=== PATIENT | male | born 1945 | race Caucasian/White ===

== ENCOUNTER 2019-11-02 14:09 | Outpatient (CLI) | payer MEDICARE, BC, SELFPAY ==
--- NOTE | ~2019-11-02 | XR_ITS ---
XR abdomen/kub 1V 11/02/2019 14:39 Indication: History of kidney stones Procedure: KUB Comparison: No prior studies for comparison. Findings: There are bilateral renal stones, largest in the lower pole of the left kidney measuring 10 mm maximum dimension. There is a vague round radiodensity in the pelvis overlying the lower aspect o f the sacrum, possibly bowel content or less likely bladder stone. Consider correlation with CT for f urther characterization. Moderate lumbar spondylosis. Impression: 1: Bilateral nephrolithiasis. 2: Vague round radiodensity in the pelvis which may represent bowel content or less likely bladder st one. Consider correlation with CT. Reviewed, dictated and finalized at location A. Impression: 1: Bilateral nephrolithiasis. 2: Vague round radiodensity in the pelvis which may represent bowel content or less likely bladder stone. Consider correlation with CT.
== END 2019-11-02 14:10 | disposition home or self-care (01) ==
LOC: ANHIMG 14:20
PROVIDERS: PCP Internal Medicine; Visit Provider Urology
DX: Z87.442 Personal history of urinary calculi (principal); N20.0 Calculus of kidney
CPT/HCPCS: 74018

== ENCOUNTER 2019-11-09 10:23 | Outpatient (CLI) | payer MEDICARE, SELFPAY ==
[2019-11-09 10:52] LABS: INR 1.1; Partial Thromboplastin Time 28.6 SECONDS (22.3-36.8); Prothrombin Time 13.5 Seconds (11.1-14.7)
== END 2019-11-09 10:24 | disposition home or self-care (01) ==
LOC: ANHSURGERY 10:27
PROVIDERS: PCP Internal Medicine; Visit Provider Urology
DX: N20.0 Calculus of kidney (principal); Z01.812 Encounter for preprocedural laboratory examination
CPT/HCPCS: 36415; 85610; 85730; 87086

== ENCOUNTER 2019-11-11 00:21 | Outpatient (CLI) | payer MEDICARE, SELFPAY ==
[2019-11-11 18:11] LABS: SARS-CoV-2 RNA PCR Negative
== END 2019-11-11 00:22 | disposition home or self-care (01) ==
LOC: ANHCOVIDDT 00:22
PROVIDERS: PCP Internal Medicine; Visit Provider Urology
DX: Z01.812 Encounter for preprocedural laboratory examination (principal); Z20.828 Contact with and (suspected) exposure to other viral communicable diseases
CPT/HCPCS: 87635; C9803; U0003

== ENCOUNTER 2019-11-13 03:11 | Day surgery (SDC) | payer MEDICARE, SELFPAY ==
[2019-11-05 15:35] VITALS: BMI 25.8
[2019-11-13] VITALS (10 sets, daily range): BP systolic 102–131; BP diastolic 55–96; PULSE 58–67; RESP 8–18; TEMP 36.4–36.5; O2SAT 96–100
--- NOTE | ~2019-11-13 | XR_ITS ---
EXAMINATION: XR abdomen/kub 1V DATE: 11/13/2019 06:25 INDICATION: Left kidney stone. TECHNIQUE: A supine view of the abdomen was obtained. COMPARISON: Abdomen radiograph 11/02/2019 FINDINGS: There is an 8 mm stone in left kidney. There are no dilated loops of bowel. IMPRESSION: 1. Left kidney stone. Reviewed, dictated and finalized at location A. IMPRESSION: 1. Left kidney stone.
--- NOTE | 2019-11-13 06:38 | WPDANESEPPF ---
Anes - Initial Pre Proc Eval Procedure: Operation Date: 11/13/19 07:30 Proposed Procedures p Left Renal Extracorporeal Shock Wave Lithotripsy - Avtar Marcus MD Date/Time: 11/13/19 06:38 Surgeon: Avtar Marcus MD Pre Op Diagnosis: Left Renal Stone Patient Data Age: 74 Gender: M Height: 5 ft 9 in Weight: 79.38 kg Allergies Allergy/AdvReac Type Severity Reaction Status Date / Time No Known Allergies Allergy Unverified 11/05/19 15:25 Home Medications Medication Instructions Recorded Confirmed Type levothyroxine 25 mcg PO DAILY 11/05/19 11/05/19 History multivitamin [Daily Multiple] 1 tablet PO DAILY 11/05/19 11/05/19 History omeprazole 20 mg PO DAILY 11/05/19 11/05/19 History Patient hx anesthesia problems: none Family hx anesthesia problems: none [facility] Past Medical History Medical History (Updated 11/13/19 @ 06:39 by Gagan Keen MD) Ureteral stone Social History Social History (Updated 11/13/19 @ 06:39 by Gagan Keen MD) Smoking status: Never smoker Gender identity (if verbalized by the patient): Male Anes - Eval Final PreProcedure Day of Procedure 11/13/19 06:38 Patient weight: normal Heart: regular rate and rhythm Lungs: clear to auscultation Airway: Mallampati scale class II Neurological: alert and oriented Last oral intake: >/= 8 hours ASA classification: II Emergent: no Anesthetic plan: proceed Anesthesia type and monitoring: general LMA and standard monitoring Informed Consent: The patient's anesthetic plan and its attendant risks and benefits were discussed with the patient/family/POA. Questions were solicited and answers provided to the satisfaction of the patient/family/POA.
--- NOTE | 2019-11-13 07:04 | WPDHPUPDATE1 ---
History and Physical Update Update Date/Time: 11/13/19 07:04 History and Physical has been reviewed, including an updated exam of the patient. There are NO changes in the patient's condition. Risks, benefits, and alternatives have been discussed and questions answered. Patient agrees to proceed with procedure.
[2019-11-13] MEDS: LACTATED RINGERS 1,000 ML 30 ML IV CONT ×2 (07:18→09:00)
[2019-11-13] MEDS: ceFAZolin 2 GM/D5W 50 ML 2 GM/50 ML BAG IVPB (07:23)
--- NOTE | 2019-11-13 07:49 | PM.PROC ---
Procedure Note - Detailed Date of procedure: 11/13/19 Pre-op diagnosis: Left Renal Stone Post-op diagnosis: same Procedure performed: Left renal ESWL Description of procedure: The patient was brought to the operative suite where he was placed in the supine position on the Dornier lithotripsy table. The focal point of the lithotripter was placed at a 9-10mm left lower calyceal calculus. A total of 2500 shocks were delivered at a power setting of 4. There appeared to be good fragmentation of the stone. The patient tolerated the procedure well and was taken to the recovery room in good condition. Anesthesia: GLMA Surgeon: Avtar Marcus MD Exhaust Emissions Automotive Technician: None Drains: No Packing: No Pathology: none sent Complications: No immediate complications Condition: stable Disposition: PACU
[2019-11-13] MEDS: ONDANSETRON INJ 4 MG/2 ML VIAL IV PUSH (09:13)
--- NOTE | 2019-11-13 09:14 | SUR.PHASEI ---
C/O MILD NAUSEA. ZOFRAN GIVEN
--- NOTE | 2019-11-13 09:26 | SUR.PHASEI ---
PT STATES NAUSEA IMPROVED. RESTING COMFORTABLY
== END 2019-11-13 10:45 | disposition home or self-care (01) ==
PROVIDERS: PCP Internal Medicine; Visit Provider Urology
PROC: (CPT 50590; principal; 2019-11-13 07:30)
DX: N20.0 Calculus of kidney (principal)
CPT/HCPCS: 50590; 74018; A9270; J0690; J1100; J2250; J2405; J2704; J3010; J7120

== ENCOUNTER 2021-07-27 09:50 | Outpatient (CLI) | payer MEDICARE, SELFPAY ==
--- NOTE | ~2021-07-27 | XR_ITS ---
XR chest 2V DATE: 07/27/2021 11:21 INDICATION: Malignant neoplasm of prostate. Preoperative examination. TECHNIQUE: PA and lateral views COMPARISON: None FINDINGS: Normal heart size. No hilar or mediastinal enlargement. No pulmonary infiltrate or consolid ation, pleural effusion or pulmonary vascular congestion or pneumothorax. Calcified pulmonary granulo ma, right upper lobe. Prominent degenerative disc disease in the lower cervical spine. Mild degenerative spurring of the th oracic spine. IMPRESSION: No active cardiopulmonary disease Reviewed, dictated and finalized at location A. MAKER
--- NOTE | 2021-07-27 10:48 | ECG_ITS ---
Measurements Intervals [place] Rate: 55 P: -29 NV: 160 QRS: 41 QRSD: 90 T: 15 QT: 397 QTc: 383 Interpretive Statements SINUS BRADYCARDIA OTHERWISE NORMAL ECG NO PREVIOUS ECG AVAILABLE FOR COMPARISON Electronically Signed On 07-27-2021 15:23:08 NURSE RECEPTIONIST by Gregory Khan M.D.
[2021-07-27 11:16] LABS: Basophils Absolute Auto 0.1 K/mm3 (0.0-0.1); Basophils Percent Auto 1.2 % (0.2-1.2); Eosinophils Absolute Auto 0.3 K/mm3 (0-0.3); Eosinophils Percent Auto 7.1 % (0-4.4); Hematocrit 41.2 % (42.0-52.0); Hemoglobin 13.5 g/dL (14.0-18.0); Immature Granulocyte Absolute 0.01 K/mm3 (0.00-0.031); Immature Granulocyte Percent A 0.2 % (0-0.5); Immature Platelet Fraction Pct 4.7 % (0.9-11.2); Lymphocytes Absolute Auto 1.38 K/mm3 (0.9-3.2); Lymphocytes Percent Auto 32.5 % (18.3-44.2); Mean Corpuscular HGB Conc 32.8 g/dl (32-36); Mean Corpuscular Hemoglobin 30.1 pg (26-34); Mean Platelet Volume 10.2 fl (7.4-10.4); Monocytes Absolute Auto 0.4 K/mm3 (0.1-0.6); Monocytes Percent Auto 8.7 % (2.6-8.5); Neutrophils Absolute Auto 2.1 K/mm3 (1.3-6.7); Neutrophils Percent Auto 50.3 % (45.5-73.1); Platelet Count Result 149 k/mm3 (150-375); Red Blood Count 4.48 M/mm3 (4.6-6.20); Red Cell Distribution Width 12.8 % (11.5-14.5); White Blood Count 4.2 K/mm3 (4.5-10.0)
[2021-07-27 11:20] LABS: Add Urine Microscopic? YES; Appearance Urine Clear (Clear); Bilirubin Urine Negative (Negative); Blood Urine Negative (Negative); Color Urine Yellow (Yellow); Glucose Urine UA Negative (Negative); Ketones Urine Negative (Negative); Leukocyte Esterase Ur Negative LEU/UL (Negative); Mucus Urine Rare /lpf; Nitrate Urine Negative (Negative); Protein Urine Negative (Negative); RBC Urine 0-2 /hpf (0-2); Specific Grav Ur 1.018 (1.001-1.035); Squamous Epithelial Cell Urine Rare /hpf (Few); Urobilinogen Urine Negative mg/dL (<2.0); WBC Urine 0-3 /hpf
[2021-07-27 11:25] LABS: INR 1.1; Prothrombin Time 13.5 Seconds (11.1-14.7)
[2021-07-27 11:26] LABS: Partial Thromboplastin Time 33.4 SECONDS (22.3-36.8)
[2021-07-27 11:39] LABS: Alanine Aminotransferase 25 U/L (4-50); Albumin Level 4.1 g/dL (3.5-5.1); Alkaline Phosphatase 76 U/L (38-126); Anion Gap 6 mmol/L (8-16); Aspartate Amino Transferase 29 U/L (17-59); Bilirubin,Total 0.5 mg/dL (0.2-1.3); Blood Urea Nitrogen 21 mg/dL (9-20); Calcium 8.6 mg/dL (8.4-10.2); Carbon Dioxide 30 mmol/L (22-30); Chloride 105 mmol/L (98-107); Estimated Glomerular Filt Rate > 60; Glucose 99 mg/dL (65-110); Potassium 4.4 mmol/L (3.4-5.0); Sodium 141 mmol/L (137-145)
== END 2021-07-27 09:51 | disposition home or self-care (01) ==
LOC: ANHSURGERY 09:55
PROVIDERS: PCP Internal Medicine; Visit Provider Urology
DX: Z01.818 Encounter for other preprocedural examination (principal); C61 Malignant neoplasm of prostate; R00.1 Bradycardia, unspecified; M47.814 Spondylosis without myelopathy or radiculopathy, thoracic region; Z51.81 Encounter for therapeutic drug level monitoring; Z79.899 Other long term (current) drug therapy
CPT/HCPCS: 36415; 71046; 80053; 81001; 85025; 85055; 85610; 85730; 86850; 86900; 86901; 93005

== ENCOUNTER 2021-08-03 00:39 | Day surgery (SDC) | payer MEDICARE, SELFPAY ==
--- NOTE | 2021-07-26 07:34 | P.HP_ITS ---
H&P: HPI History of Present Illness Date/Time: 07/26/21 07:34 Pleasant 76-year-old male who is known to have an elevated PSA since January 2015. At that time he underwent his 1st prostate biopsy around the time his PSA was 4.2. That biopsy was negative. , more recently, however, his PSA is progressed to 25.5 and a prostate MRI shows an area of concern in the right anterior / posterior transition zone extending from the base to the midportion of his prostate and perhaps encroaching the prostate capsule anteriorly. MRI targeted biopsy revealed adenocarcinoma Gabino 6, 4+3=7, 8 in 4 of [address] scan of the abdomen pelvis w/ contrast, bone scan and chest x-ray showed no evidence of metastatic disease. After thorough discussion of the therapeutic options he has elected to proceed with robotic assisted radical prostatectomy with bilateral pelvic lymphadenectomy. He is aware of the risk including, but not limited to, adverse cardiopulmonary events, rectal injury, urinary incontinence and erectile dysfunction. Chief Complaint: Prostate cancer Review of Systems Cardiovascular: Cardiovascular: Denies chest pain, Denies lightheadedness, Denies palpitations and Denies dyspnea Respiratory: Respiratory: Denies dyspnea Gastrointestinal: Gastrointestinal: Denies diarrhea, Denies nausea and Denies vomiting Genitourinary: Genitourinary: Denies hematuria and Denies dysuria Endocrine: Endocrine: Denies palpitations PMFSH Past Medical History Medical History Ureteral stone Social History Social History Smoking status: Never smoker Alcohol intake: never Substance use: never Gender identity (if verbalized by the patient): Male Meds Home Medications and Allergies Home Medications Medication Instructions Recorded Confirmed Type levothyroxine 25 mcg PO DAILY 11/05/19 07/04/21 History multivitamin [Daily Multiple] 1 tablet PO DAILY 11/05/19 07/04/21 History omeprazole 20 mg PO DAILY 11/05/19 07/04/21 History diphenoxylate-atropine 2.5 1 tablet PO QID PRN 07/04/21 07/04/21 History mg-0.025 mg tablet tadalafil 5 mg tablet 5 mg PO DAILY 07/04/21 07/04/21 History tamsulosin 0.4 mg capsule 0.4 mg PO DAILY 07/04/21 07/04/21 History Allergies Allergy/AdvReac Type Severity Reaction Status Date / Time No Known Allergies Allergy Unverified 07/04/21 08:16 Exam Const: General: no acute distress Resp: Effort & Inspection: normal respiratory effort GI: Inspection: non-distended GI Palp: No abdominal tenderness and No Guarding due to palpation present (GI) Auscultation: normal bowel sounds Assessment and Plan Assessment and plan (1) Carcinoma of prostate: Code(s): C61 - Malignant neoplasm of prostate Status: Acute Assessment and Plan: * Robotic assisted radical prostatectomy with bilateral pelvic lymphadenectomy
--- NOTE | 2021-07-27 10:25 | PC.NURSE ---
Report to the Outpatient Waiting Room, entrance under the green pavilion located off [facility], at time _0600 on date __08/03/21 . OR Time: . - You and your visitor will be asked a series of questions to screen for COVID 19 for your protection. - A mask is required within the hospital. Preoperative COVID Testing Requirements: No COVID Test needed if: (proof is required; if not received patient will have Rapid Test prior to entry) - Patient has received COVID Vaccine at least 14 days prior to procedure date or - Patient has positive COVID test result within last 90 days of surgery date. COVID Test needed if above criteria is not met If not COVID vaccinated a COVID test must be conducted within 72 hours of surgery and patient is asked to isolate self from time of testing until procedure. You will go to the [employer] [facility] for your COVID testing. The [employer] [facility] is located at the corner of [address] [facility]. You will only be called if COVID results are positive and your surgeon may reschedule your elective surgery date. Patients may have clear liquids (water, carbonated beverages, clear teas, apple juice) until 3 hours prior to surgery with a maximum of 20 ounces. - No food from midnight until time of surgery Take the following medications with a SIP of water the morning of surgery: __LEVOTHYROXINE Medications to discontinue per physician __ALL VITAMINS AND SUPPLEMENTS 3 DAYS PRE OP,ADVIL PER DR AGUIAR Date to take last dose__07/30/21 Please no make-up, nail chinese, hairspray, perfume, deodorant, or body powder the day of surgery. No jewelry (including any body piercings) or valuables the day of surgery, leave them at home. Please take a shower or bath the night before, or the morning of, surgery with an antibacterial soap. Wear comfortable, loose fitting clothing. Children are encouraged to wear pajamas. - Jewelry must be removed prior to entering the operating room. Rings and piercings that are not removed may be cut off. - The hospital will not accept responsibility for valuables. - Please leave all valuables, including medications, at home the day of surgery. If you are going home after surgery, a licensed over the road driver must drive you home. - NO public transportation without another adult. - We recommend that an adult stay with you for 24 hours following discharge. - We also recommend that you do not drive, make important decision, drink alcoholic beverages, or take any drugs that were not prescribed by your health care provider for at least 24 hours after your discharge time. For Pediatric surgeries, we recommend two adults accompany the child home (only one inside the building at this time). One visitor will be allowed to accompany the patient into the hospital. Patients visitor will be instructed to remain with patient at all times or leave the building. We will allow the visitor to come back to the postoperative area when patient is ready. Follow any additional instructions given to you from your surgeon. BOWEL PREP PER DR AGUIAR VERBAL/WRITTEN instructions given to _PATIENT and asked if any additional questions and then verbalized understanding. Patient advised to call surgeon office or pre surgery nurse liaison [phone] if any additional questions.
[2021-07-27 10:48] VITALS: BP 151/67; PULSE 64; RESP 18; TEMP 36.6; O2SAT 100
[2021-07-27 10:54] VITALS: BMI 27.8
--- NOTE | 2021-08-02 13:37 | WPDANESEPPF ---
Anes - Initial Pre Proc Eval Procedure: Operation Date: 08/03/21 07:30 Proposed Procedures p Robotic Assisted Laparoscopic Prostatectomy with Bilateral Pelvic Lymph Node Dissection - Avtar Marcus MD Date/Time: 08/02/21 13:37 Surgeon: Avtar Marcus MD Pre Op Diagnosis: Prostate Cancer Patient Data Age: 76 Gender: M Height: 1.75 m Weight: 85.7 kg Last Vital Signs Temp 97.9 F 07/27/21 10:48 Pulse 64 07/27/21 10:48 Resp 18 07/27/21 10:48 BP 151/67 H 07/27/21 10:48 Pulse Ox 100 07/27/21 10:48 Allergies Allergy/AdvReac Type Severity Reaction Status Date / Time No Known Allergies Allergy Unverified 07/27/21 10:00 Home Medications Medication Instructions Recorded Confirmed Type multivitamin [Daily Multiple] 1 tablet PO DAILY 11/05/19 07/27/21 History omeprazole 20 mg PO DAILY 11/05/19 07/27/21 History diphenoxylate-atropine 2.5 1 tablet PO QID PRN 07/04/21 07/27/21 History mg-0.025 mg tablet tadalafil 5 mg tablet 5 mg PO DAILY 07/04/21 07/27/21 History tamsulosin 0.4 mg capsule 0.4 mg PO HS 07/04/21 07/27/21 History Bifidobacterium infantis 4 mg PO DAILY 07/27/21 07/27/21 History [Digestive Probiotic] ibuprofen-diphenhydramine cit 1 cap PO HS PRN 07/27/21 07/27/21 History [Advil PM] levothyroxine 75 mcg PO DAILY 07/27/21 07/27/21 History Patient hx anesthesia problems: none Family hx anesthesia problems: none Results Review: All pre-operative results and documents have been reviewed as part of the pre-operative evaluation. [facility] Past Medical History Medical History (Updated 08/02/21 @ 13:36 by Angelo Sebastian MD) Arthritis Hypothyroid Ureteral stone Social History Social History Smoking status: Never smoker Alcohol intake: never Substance use: never Living arrangements: with family Gender identity (if verbalized by the patient): Male Spiritual care concerns: No Anes - Eval Final PreProcedure Day of Procedure 08/02/21 13:37 Patient weight: normal Heart: regular rate and rhythm Lungs: clear to auscultation Airway: Mallampati scale class III Neurological: alert and oriented Last oral intake: >/= 8 hours ASA classification: III Emergent: no Anesthetic plan: proceed Anesthesia type and monitoring: general ETT and standard monitoring Results Review: All pre-operative results and documents have been reviewed as part of the pre-operative evaluation. Informed Consent: The patient's anesthetic plan and its attendant risks and benefits were discussed with the patient/family/POA. Questions were solicited and answers provided to the satisfaction of the patient/family/POA.
[2021-08-03] VITALS (14 sets, daily range): BP systolic 100–143; BP diastolic 41–75; PULSE 66–109; RESP 10–18; TEMP 36.3–37.6; O2SAT 91–100
--- NOTE | 2021-08-03 06:17 | WPDHPUPDATE1 ---
History and Physical Update Update Date/Time: 08/03/21 06:17 History and Physical has been reviewed, including an updated exam of the patient. There are NO changes in the patient's condition. Risks, benefits, and alternatives have been discussed and questions answered. Patient agrees to proceed with procedure.
[2021-08-03] MEDS: LACTATED RINGERS 1,000 ML 30 ML IV CONT ×3 (06:45→11:22)
[2021-08-03] MEDS: ceFAZolin 2 GM/D5W 50 ML 2 GM/50 ML BAG IVPB (07:29)
--- NOTE | 2021-08-03 09:38 | SUR.OPER ---
patient maintains positioning and unchanged
--- NOTE | 2021-08-03 10:34 | W.PM.PROC2 ---
Procedure Note - Detailed Date of Procedure 08/03/21 Pre-op Diagnosis Prostate Cancer Post-op Diagnosis Same Procedure Performed Robotic assisted radical prostatectomy and bilateral pelvic lymphadenectomy Surgeon Avtar Marcus MD Waterproofing Machine Operator Nakita MACIAS Anesthesia General Description of Procedure The patient was brought to the operative suite, where he was prepped and draped in routine sterile fashion while in a dorsal lithotomy, deep Trendelenburg position. A supraumbilical 10 mm trocar was placed after insufflation of the abdomen with a Veress needle. Three robotic ports were then placed under direct vision. Two of these were placed in the right lower quadrant - 10 cm and 20 cm lateral to, and in line with, the umbilicus. A third robotic trocar was placed 10 cm to the left of the umbilicus, and 20 cm to the left of the umbilicus, a 12 mm standard laparoscopic trocar was placed to be used as an investigative assistant port. Lastly, a 5 mm trocar was placed in the left upper quadrant midway between the umbilicus and the left robotic trocar. Attention was then turned to the prostatectomy. I opted for a posterior approach in this patient. An incision was made in the parietal peritoneum along the posterior bladder/posterior prostate about 2 cm above the reflection of the peritoneum over the anterior rectum. The seminal vesicles and vas deferens were immediately identified. Dissection is undertaken in a fashion so as to avoid electrocautery as much as possible, particularly near the tips of the seminal vesicles. Dissection was also carried out in the midline so as to avoid any encounters with the ureters. The vas deferens and the seminal vesicles were dissected in their entirety to the base of the prostate. The plane anterior to Denoviller's fascia, anterior to the rectum and posterior to the prostate was then developed. I then dropped the bladder by incising the anterior parietal peritoneum just lateral to the median umbilical ligaments bilaterally. The bladder was dropped from the anterior abdominal and pelvic wall. The endopelvic fascia was identified and incised bilaterally, allowing for dissection of the posterior-lateral aspect of the prostate. The puboprostatic ligaments were transected near their origin from the posterior pubic ramus. This posterior lateral dissection of the prostate is also undertaken in a fashion so as to avoid electrocautery as much as possible. The dorsal vein of the penis is then secured with an 0 -Vicryl ligature. Attention is then turned to the bladder neck. The anterior bladder neck is incised at the vesico-prostatic junction. The previously placed urethral catheter was drawn through the urethrotomy. A very small bladder neck was maintained throughout the remainder of this dissection. The posterior bladder neck was incised in a fashion so as to avoid any injury to the ureteral orifices. Again, the small aperture of the bladder neck was maintained. The previously dissected vas deferens and the seminal vesicles were brought through the posterior bladder neck incision. The lateral prostatic pedicles were then carefully dissected from the lateral aspect of the prostate bilaterally. The prostatic pedicles were secured with Weck clips and transected. The neurovascular bundles were carefully dissected from the posterior-lateral aspect of the prostate. The dorsal vein of the penis was incised with electrocautery. Using cold scissors, the urethra was incised. After withdrawing the previously placed urethral catheter, the posterior urethra was sharply incised, as was the rectalurethralis muscle. Attention was then turned to an extended bilateral pelvic lymphadenectomy. The limits of this dissection were similar bilaterally. Specifically, the limits were the bifurcation of the common iliac vein proximally, the inguinal ligament distally, the obturator nerve posteriorly and the anterior aspect to the external iliac artery latera
[2021-08-03] MEDS: diphenhydrAMINE HCl INJ 50 MG/ML VIAL 12.5 MG IV PUSH (11:02)
--- NOTE | 2021-08-03 11:26 | SUR.PHASEI ---
Simple mask removed at 1125.
--- NOTE | 2021-08-03 12:27 | ADMGEN ---
This patient, Gagan Chin, was admitted to Medical Room 252-01. Patient/family oriented to hospital policies and general routines including ID bracelet, bed and alarms, visiting hours, pain management, procedures, bathroom and other care routines, personal items, smoking policy, room service/diet, and visiting hours. Information on how to activate the Rapid Response Team has been discussed. Patient/Family are encouraged to report perceived risks to care and to ask questions if they do not understand what they are told or what they should do.
[2021-08-03] MEDS: KETOROLAC 15 MG/ML VIAL (*BKC) IV PUSH (12:36)
[2021-08-03] MEDS: HYOSCYAMINE SULFATE 0.125 MG TABLET SUBLINGUAL ×2 (12:47→16:56)
[2021-08-03] MEDS: LACTATED RINGERS 1,000 ML 125 ML IV CONT ×2 (12:50→21:12)
[2021-08-03] MEDS: ONDANSETRON INJ 4 MG/2 ML VIAL IV PUSH (13:13)
[2021-08-03] MEDS: PANTOPRAZOLE 40 MG TABLET PO (17:21)
[2021-08-04 00:45] VITALS: BP 108/56; PULSE 89; RESP 16; TEMP 37.1; O2SAT 95
[2021-08-04] MEDS: LEVOTHYROXINE SODIUM 75 MCG TABLET PO (05:56)
[2021-08-04] MEDS: LACTATED RINGERS 1,000 ML 125 ML IV CONT (05:56)
--- NOTE | 2021-08-04 07:01 | WPDUROPN2 ---
Progress Note: A&P Assessment and Plan (1) Carcinoma of prostate: Code(s): C61 - Malignant neoplasm of prostate Status: Acute Assessment and Plan: Uneventful POD #1 Await morning labs Increase diet/ambulation today. Likely home this afternoon. Subjective Subjective Date/Time Seen: 08/04/21 07:01 Comfortable, uneventful night Review of Systems Cardiovascular: Cardiovascular: Denies chest pain, Denies lightheadedness, Denies palpitations and Denies dyspnea Respiratory: Respiratory: Denies dyspnea Gastrointestinal: Gastrointestinal: Denies diarrhea, Denies nausea and Denies vomiting Genitourinary: Genitourinary: Denies hematuria and Denies dysuria Endocrine: Endocrine: Denies palpitations Exam Const: General: no acute distress Resp: Effort & Inspection: normal respiratory effort GI: Inspection: non-distended GI Palp: No abdominal tenderness and No Guarding due to palpation present (GI) Auscultation: normal bowel sounds Urinary Catheter: Urinary Catheter: patent and draining and urine clear Objective Data Vital Signs Vital Signs: Vital Signs - 24 hr 08/03/21 10:21 08/03/21 10:35 08/03/21 10:50 Temperature 97.3 F L Pulse Rate 66 71 73 Respiratory Rate 10 L 14 12 Blood Pressure 100/41 L 113/56 L 127/73 Pulse Oximetry 100 100 100 08/03/21 11:05 08/03/21 11:20 08/03/21 11:35 Temperature 98.6 F Pulse Rate 75 70 70 Respiratory Rate 12 12 10 L Blood Pressure 124/60 119/61 116/63 Pulse Oximetry 100 100 93 08/03/21 11:50 08/03/21 12:20 08/03/21 12:41 Temperature 97.6 F 97.3 F L Pulse Rate 78 87 78 Respiratory Rate 10 L 14 14 Blood Pressure 104/59 L 134/60 133/59 L Pulse Oximetry 91 99 93 08/03/21 13:13 08/03/21 14:48 08/03/21 17:50 Temperature 97.4 F L 98.3 F 99.7 F H Pulse Rate 90 100 109 H Respiratory Rate 14 14 18 Blood Pressure 143/67 H 140/74 135/64 Pulse Oximetry 97 96 96 08/03/21 21:13 08/04/21 00:45 Temperature 98.2 F 98.7 F Pulse Rate 85 89 Respiratory Rate 14 16 Blood Pressure 114/59 L 108/56 L Pulse Oximetry 93 95 Intake/Output Intake/Output: Intake & Output 08/01/21 08/02/21 08/03/21 08/04/21 23:59 23:59 23:59 23:59 Intake Total 1820 1550 Output Total 400 1000 Balance 1420 550 Meds/Results Medications: Active Medications Generic Name Dose Route Start Last Admin Trade Name Freq PRN Reason Stop Dose Admin Hyoscyamine 0.125 mg 08/03/21 12:05 08/03/21 16:56 Hyoscyamine Sulfate 0.125 Mg Tablet SUBLINGUAL 0.125 mg Q4H PRN Administration Bladder Spasm Acetaminophen 1,000 mg in 100 mls @ 400 mls/hr 08/03/21 18:00 08/04/21 07:00 Ofirmev 1,000 Mg Ivpb IVPB 08/04/21 17:59 Infused Q6HR NANCY Infusion Lactated Ringer's 1,000 mls @ 125 mls/hr 08/03/21 12:05 08/04/21 05:56 Lr - Lactated Ringers Iv IV CONT 125 mls/hr .Q8H NANCY Administration Ketorolac Tromethamine 15 mg 08/03/21 12:05 08/03/21 12:36 Ketorolac 15 Mg/Ml Vial (*Bkc) IV PUSH 15 mg Q6H PRN Administration Pain Rated 4-6 Levofloxacin 500 mg 08/04/21 09:00 Levofloxacin 500 Mg Tablet PO DAILY NANCY Levothyroxine Sodium 75 mcg 08/04/21 06:30 08/04/21 05:56 Levothyroxine Sodium 75 Mcg Tablet PO 75 mcg DAILY@0630 NANCY Administration Naloxone HCl 0.1 mg 08/03/21 12:05 Naloxone Hcl 0.4 Mg/Ml Vial IV PUSH Q2M PRN Opiate Reversal Ondansetron HCl 4 mg 08/03/21 12:54 08/03/21 13:13 Ondansetron Inj 4 Mg/2 Ml Vial IV PUSH 4 mg Q4H PRN Administration Nausea And Vomiting Pantoprazole Sodium 40 mg 08/03/21 16:58 08/03/21 17:21 Pantoprazole 40 Mg Tablet PO 40 mg DAILY NANCY Administration
[2021-08-04 07:28] LABS: Hemoglobin 11.9 g/dL (14.0-18.0)
[2021-08-04 07:42] LABS: Anion Gap 4 mmol/L (8-16); Blood Urea Nitrogen 20 mg/dL (9-20); Calcium 7.7 mg/dL (8.4-10.2); Carbon Dioxide 28 mmol/L (22-30); Chloride 107 mmol/L (98-107); Estimated CRCL calculation 47 ml/min; Estimated Glomerular Filt Rate 59; Glucose 112 mg/dL (65-110); Potassium 3.9 mmol/L (3.4-5.0); Sodium 139 mmol/L (137-145)
[2021-08-04] MEDS: levoFLOXacin 500 MG TABLET PO (08:10)
[2021-08-04] MEDS: PANTOPRAZOLE 40 MG TABLET PO (08:11)
--- NOTE | 2021-08-04 09:32 | WPDANESPN ---
Anes - Prog Note Post-Op Date/Time: 08/04/21 09:32 Cardiovascular status: normal Respiratory status: normal Airway patency: baseline Mental status: baseline Post-Op hydration status: normal Vital Signs: Last Vital Signs Temp 37.1 C 08/04/21 00:45 Pulse 89 08/04/21 00:45 Resp 16 08/04/21 00:45 BP 108/56 L 08/04/21 00:45 Pulse Ox 95 08/04/21 00:45 Pain Score (VAS): 0 I/O: Intake & Output 08/03/21 08/04/21 08/04/21 23:59 07:59 15:59 Intake Total 1270 1550 Output Total 350 1000 Balance 920 550 Laboratory Tests 08/04/21 07:16 08/04/21 07:16 08/04/21 08/04/21 07:16 07:16 Hgb 11.9 L Hct 36.0 L Sodium 139 Potassium 3.9 Chloride 107 Carbon Dioxide 28 Anion Gap 4 L BUN 20 Creatinine 1.20 Estim Creat Clear Calc 47 Estimated GFR 59 Glucose 112 H Calcium 7.7 L Post-procedural complaints: none Patient Feedback: Patient satisfied with anesthetic care.
[2021-08-04 10:00] VITALS: BP 129/65; PULSE 67; RESP 18; TEMP 36.4; O2SAT 98
--- NOTE | 2021-08-04 12:31 | PM.DS ---
DS: Admitting Diagnosis Discharge Date 08/04/2021 Admitting Diagnosis Prostate cancer DS: Discharge Diagnosis Discharge Diagnosis (1) Carcinoma of prostate: Code(s): C61 - Malignant neoplasm of prostate Status: Acute DS: Summary Hospital Course Hospital Course: This patient was admitted on the morning of his planned robotic prostatectomy. This procedure was uneventful, as was his postoperative course. By the evening of the procedure he was sitting at the bedside in tolerating a liquid diet. The following morning he was ambulating freely and tolerating regular food. His catheter drainage remained essentially clear throughout. His postoperative hemoglobin and serum creatinine were unremarkable. At the time of discharge he has been instructed in appropriate care for his Clement catheter with both a leg bag and bedside bag. He will be discharged with plans to follow-up in 1 week with a cystogram. Time Spent with Patient Time attestation: Total time spent providing and/or coordinating discharge services: 15min. Exam Const: General: no acute distress Resp: Effort & Inspection: normal respiratory effort GI: Inspection: non-distended GI Palp: No abdominal tenderness and No Guarding due to palpation present (GI) Auscultation: normal bowel sounds Urinary Catheter: Urinary Catheter: patent and draining DS: Data Data Completed and Pending Pending studies at discharge: Pending at discharge 08/03/21 10:00 Surgical [PTH] Routine Surgical [PTH] Routine Surgical [PTH] Routine Labs on day of discharge: Labs from last 24 hours 08/04/21 08/04/21 07:16 07:16 Hgb 11.9 L Hct 36.0 L Sodium 139 Potassium 3.9 Chloride 107 Carbon Dioxide 28 Anion Gap 4 L BUN 20 Creatinine 1.20 Estim Creat Clear Calc 47 Estimated GFR 59 Glucose 112 H Calcium 7.7 L Discharge Plan Discharge Patient Disposition: Home, Self-Care Discharge Instructions: 1) Clement catheter -> leg bag / bedside bag at night. 2) No lifting/straining >15lbs. x3 weeks. 3) No driving x1-week. 4) Resume normal, pre-operative diet. 5) My office will contact regarding follow-up in 1-week with cystogram. Patient Instructions: Clement Catheter Placement and Care (ED), Urinary Leg Bag (GEN), Clement Catheter Removal (DC), How to Change a Catheter Drainage Bag (DC) Stand Alone Forms: General Discharge Instructions Discharge Orders: Discharge Order (Routine); Ordered 08/04/21 Ordered By: Avtar Marcus Discharge Medications: New hydrocodone-acetaminophen 5-325 mg tablet 1 - 2 tablet PO Q6H PRN (Reason: pain) Qty: 24 RF: 0 cephalexin 500 mg capsule 500 mg PO Q8H Qty: 12 RF: 0 hyoscyamine sulfate 0.125 mg tablet 0.125 mg PO Q6H PRN (Reason: bladder spasms) Qty: 20 RF: 2 Continued diphenoxylate-atropine 2.5-0.025 mg tablet 1 tablet PO QID PRN (Reason: IBS) RF: 0 tadalafil 5 mg tablet 5 mg PO DAILY RF: 0 multivitamin [Daily Multiple] Tablet 1 tablet PO DAILY RF: 0 omeprazole 20 mg Tablet,Delayed Release (Dr/Ec) 20 mg PO DAILY RF: 0 levothyroxine 75 mcg tablet 75 mcg PO DAILY RF: 0 Bifidobacterium infantis 1.5 billion cell Capsule 4 mg PO DAILY RF: 0 Advil PM 200-38 mg Tablet 1 cap PO HS PRN (Reason: Insomnia) RF: 0 Discontinued tamsulosin 0.4 mg capsule 0.4 mg PO HS RF: 0
== END 2021-08-04 13:14 | disposition home or self-care (01) ==
LOC: ANHSURGERY 06:06 → ANH2MED 12:08
PROVIDERS: PCP Internal Medicine; Visit Provider Urology
PROC: 0VT04ZZ Resection of Prostate, Percutaneous Endoscopic Approach (ICD-10-PCS; CPT 55867; principal; 2021-08-03 07:30)
DX: C61 Malignant neoplasm of prostate (principal); E03.9 Hypothyroidism, unspecified
CPT/HCPCS: 55866; 38571; S2900; 36415; 80048; 85014; 85018; 88305; 88307; 88309; A9270; J0131; J0690; J1100; J1170; J1200; J1885; J2250; J2405; J2704; J2710; J3010; J7030; J7120; Q9968

== ENCOUNTER 2021-08-11 11:34 | Outpatient (CLI) | payer MEDICARE, SELFPAY ==
--- NOTE | ~2021-08-11 | XR_ITS ---
EXAMINATION: CYSTOGRAM DATE: 08/11/2021 12:06 INDICATION: Prostate cancer one week post prostatectomy TECHNIQUE: Initial electric scoop operator radiograph of the pelvis was performed. There was retrograde administration of Omnipaque 350 mixed with saline contrast into patient's existing martin catheter. Fluoroscopic ashu ges of the pelvis were obtained. A post-void image was also performed. A total of 1 overhead radiogra phs and 13 fluoroscopic images were obtained. Fluoroscopy exposure time was 0.3 minutes. FINDINGS: Martin catheter within the bladder which demonstrates normal contour. No bladder leak. Moder ate lumbar spondylosis on the electric scoop operator image. There also appears to be a 2 mm stone at the lower pole of the right kidney. IMPRESSION: 1. No bladder leak. 2. 2 mm right renal stone. Reviewed, dictated and finalized at location A.
== END 2021-08-11 11:35 | disposition home or self-care (01) ==
PROVIDERS: PCP Internal Medicine; Visit Provider Urology
DX: C61 Malignant neoplasm of prostate (principal); Z98.890 Other specified postprocedural states; Z96.0 Presence of urogenital implants; N20.0 Calculus of kidney
CPT/HCPCS: 51600; 74430; Q9967

== ENCOUNTER 2023-01-16 00:22 | Day surgery (SDC) | payer MEDICARE, SELFPAY ==
[2023-01-03 09:19] VITALS: BMI 26.4
--- NOTE | 2023-01-15 12:25 | P.PNAN_ITS ---
Anes - Initial Pre Proc Eval Procedure: Operation Date: 01/16/23 08:00 Proposed Procedures p Esophagogastroduodenoscopy & Screening Colonoscopy - Zia Mai MD Date/Time: 01/15/23 12:25 Surgeon: Zia Mai MD Pre Op Diagnosis: GERD, neoplasm screening Patient Data Age: 77 Gender: M Height: 1.75 m Weight: 81 kg Allergies Allergy/AdvReac Type Severity Reaction Status Date / Time tamsulosin [From Flomax] Allergy Hives Verified 01/16/23 06:42 Home Medications Medication Instructions Recorded Confirmed Type multivitamin (Daily Multiple 1 tablet PO DAILY 11/05/19 01/03/23 History tablet) omeprazole 20 mg tablet,delayed 20 mg PO DAILY 11/05/19 01/03/23 History release diphenoxylate-atropine 2.5 1 tablet PO QID PRN IBS 07/04/21 01/03/23 History mg-0.025 mg tablet tadalafil 5 mg tablet 5 mg PO DAILY 07/04/21 01/03/23 History Bifidobacterium infantis 1.5 4 mg PO DAILY 07/27/21 01/03/23 History billion cell capsule ibuprofen-diphenhydramine citrate 1 cap PO HS PRN Insomnia 07/27/21 01/03/23 History 200 mg-38 mg tablet (Advil PM) levothyroxine 75 mcg tablet 75 mcg PO DAILY 07/27/21 01/16/23 History sodium,potassium,mag sulfates 17.5 See Rx Instructions PO .COMPLEX 12/10/22 01/03/23 Rx gram-3.13 gram-1.6 gram oral soln #354 mL (Suprep Bowel Prep Kit) Myrbetriq 1 tab-cap PO DAILY 01/03/23 01/03/23 History venlafaxine 37.5 mg 37.5 mg PO DAILY 01/03/23 01/03/23 History capsule,extended release 24 hr Patient hx anesthesia problems: none Family hx anesthesia problems: none Results Review: All pre-operative results and documents have been reviewed as part of the pre- operative evaluation. [facility] Past Medical History Medical History Arthritis Gastroesophageal reflux disease Hypothyroid Prostate cancer Ureteral stone Surgical History Surgical History (Updated 01/16/23 @ 07:50 by Myron Ross DO) History of appendectomy History of prostatectomy Social History Social History Smoking status: Never smoker Alcohol intake: never Substance use: never Substance use type: does not use Living arrangements: with family Gender identity (if verbalized by the patient): Male Spiritual care concerns: No Anes - Eval Final PreProcedure Day of Procedure 01/15/23 12:25 Patient weight: overweight Heart: regular rate and rhythm Lungs: clear to auscultation Airway: Mallampati scale class II Neurological: alert and oriented Last oral intake: >/= 8 hours ASA classification: III Emergent: no Anesthetic plan: proceed Anesthesia type and monitoring: general GIVS and standard monitoring Results Review: All pre-operative results and documents have been reviewed as part of the pre- operative evaluation. Informed Consent: The patient's anesthetic plan and its attendant risks and benefits were discussed with the patient/family/POA. Questions were solicited and answers provided to the satisfaction of the patient/family/POA.
--- NOTE | 2023-01-15 14:59 | PM.HPGS ---
History of Present Illness History of Present Illness Consent: Risks, benefits, and alternatives have been discussed and questions answered. Patient agrees to proceed with procedure. Chief complaint: GERD, neoplasm screening Narrative: Gagan Chin is a 77 year old male who was due for colon cancer screening. He also is having reflux symptoms. He has been taking omeprazole for few years which has helped with his heartburn. He often however finds that he needs to clear his throat particularly during and after meal. He has not lost weight. Review of Systems Review of Systems: All systems reviewed & are unremarkable except as noted in HPI and below PMFSH Past Medical History Medical History Arthritis Gastroesophageal reflux disease Hypothyroid Prostate cancer Ureteral stone Surgical History Surgical History History of appendectomy Social History Social History Smoking status: Never smoker Alcohol intake: never Substance use: never Substance use type: does not use Living arrangements: with family Gender identity (if verbalized by the patient): Male Spiritual care concerns: No Meds Home Medications and Allergies Home Medications Medication Instructions Recorded Confirmed Type multivitamin (Daily Multiple 1 tablet PO DAILY 11/05/19 01/03/23 History tablet) omeprazole 20 mg tablet,delayed 20 mg PO DAILY 11/05/19 01/03/23 History release diphenoxylate-atropine 2.5 1 tablet PO QID PRN IBS 07/04/21 01/03/23 History mg-0.025 mg tablet tadalafil 5 mg tablet 5 mg PO DAILY 07/04/21 01/03/23 History Bifidobacterium infantis 1.5 4 mg PO DAILY 07/27/21 01/03/23 History billion cell capsule ibuprofen-diphenhydramine citrate 1 cap PO HS PRN Insomnia 07/27/21 01/03/23 History 200 mg-38 mg tablet (Advil PM) levothyroxine 75 mcg tablet 75 mcg PO DAILY 07/27/21 01/16/23 History sodium,potassium,mag sulfates 17.5 See Rx Instructions PO .COMPLEX 12/10/22 01/03/23 Rx gram-3.13 gram-1.6 gram oral soln #354 mL (Suprep Bowel Prep Kit) Myrbetriq 1 tab-cap PO DAILY 01/03/23 01/03/23 History venlafaxine 37.5 mg 37.5 mg PO DAILY 01/03/23 01/03/23 History capsule,extended release 24 hr Allergies Allergy/AdvReac Type Severity Reaction Status Date / Time tamsulosin [From Flomax] Allergy Hives Verified 01/16/23 06:42 Exam Const: General: alert Orientation/consciousness: patient oriented x3 Resp: Auscultation: clear to auscultation bilaterally Cardio: Rhythm: regular rhythm GI: GI Palp: Yes Soft to palpation and No Tenderness to palpation present (GI) Neuro: General: patient oriented x3 Assessment and Plan Assessment and plan (1) Gastroesophageal reflux disease: Code(s): K21.9 - Gastro-esophageal reflux disease without esophagitis Status: Acute Assessment and Plan: EGD with possible biopsy or dilatation or cautery. (2) Colon cancer screening: Code(s): Z12.11 - Encounter for screening for malignant neoplasm of colon Status: Acute Assessment and Plan: Colonoscopy with possible biopsy or polypectomy or cautery or injection of substances.
[2023-01-16 06:45] VITALS: BP 130/74; PULSE 66; RESP 16; TEMP 36.2; O2SAT 98
[2023-01-16] MEDS: LACTATED RINGERS 1,000 ML 150 ML IV CONT (06:58)
--- NOTE | 2023-01-16 08:11 | SUR.OPER ---
EGD end 805 COLONOSCOPY START 810
[2023-01-16 08:23] VITALS: BP 117/64; PULSE 64; RESP 16; O2SAT 98
[2023-01-16 08:33] VITALS: BP 123/69; PULSE 62; RESP 17; O2SAT 98
[2023-01-16 08:43] VITALS: BP 121/82; PULSE 60; RESP 17; O2SAT 98
== END 2023-01-16 09:06 | disposition home or self-care (01) ==
PROVIDERS: PCP Student in an Organized Health Care Education/Training Program; Visit Provider Internal Medicine Gastroenterology
PROC: 0DJ08ZZ Inspection of Upper Intestinal Tract, Via Natural or Artificial Opening Endoscopic (ICD-10-PCS; CPT 43235; principal; 2023-01-16 08:00)
DX: Z12.11 Encounter for screening for malignant neoplasm of colon (principal); K64.8 Other hemorrhoids; K57.30 Diverticulosis of large intestine without perforation or abscess without bleeding; K21.9 Gastro-esophageal reflux disease without esophagitis; E03.9 Hypothyroidism, unspecified; Z85.46 Personal history of malignant neoplasm of prostate
CPT/HCPCS: 43239; G0121; 88305; J2704; J7120

== ENCOUNTER 2023-04-15 00:24 | Day surgery (SDC) | payer MEDICARE, SELFPAY ==
[2023-04-02 10:23] VITALS: BMI 26.6
--- NOTE | 2023-04-12 10:35 | SUR.PREOP ---
Patient called regarding upcoming procedure. Reviewed preop instructions, appointment times, and procedure prep.
--- NOTE | 2023-04-14 20:24 | PM.HPGS ---
History of Present Illness History of Present Illness Consent: Risks, benefits, and alternatives have been discussed and questions answered. Patient agrees to proceed with procedure. Chief complaint: Hemorrhage of anus and rectum Narrative: Gagan Chin is a 78 year old male who has been having rectal bleeding for several weeks. 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 Review of Systems Review of Systems: All systems reviewed & are unremarkable except as noted in HPI and below PMFSH Past Medical History Medical History Arthritis Gastroesophageal reflux disease Hypothyroid Prostate cancer Ureteral stone Surgical History Surgical History History of appendectomy History of prostatectomy Social History Social History Smoking status: Never smoker Alcohol intake: never Substance use: never Substance use type: does not use Living arrangements: with family Gender identity (if verbalized by the patient): Male Spiritual care concerns: No Meds Home Medications and Allergies Home Medications Medication Instructions Recorded Confirmed Type multivitamin (Daily Multiple 1 tablet PO DAILY 11/05/19 04/15/23 History tablet) omeprazole 20 mg tablet,delayed 20 mg PO DAILY 11/05/19 04/15/23 History release diphenoxylate-atropine 2.5 1 tablet PO QID PRN IBS 07/04/21 04/15/23 History mg-0.025 mg tablet Bifidobacterium infantis 1.5 4 mg PO DAILY 07/27/21 04/15/23 History billion cell capsule levothyroxine 75 mcg tablet 75 mcg PO DAILY 07/27/21 04/15/23 History venlafaxine 37.5 mg 37.5 mg PO DAILY 01/03/23 04/15/23 History capsule,extended release 24 hr tadalafil 20 mg tablet 20 mg PO DAILY PRN erectile 04/02/23 04/15/23 History dysfruntion Allergies Allergy/AdvReac Type Severity Reaction Status Date / Time tamsulosin [From Flomax] Allergy Hives Verified 04/15/23 11:51 Exam Resp: Auscultation: clear to auscultation bilaterally Cardio: Rate: regular rate Rhythm: regular rhythm GI: GI Palp: Yes Soft to palpation and No Tenderness to palpation present (GI) Assessment and Plan Assessment and plan (1) Rectal bleeding: Code(s): K62.5 - Hemorrhage of anus and rectum Status: Acute Assessment and Plan: Sigmoidoscopy with possible biopsy or polypectomy or cautery or injection of substances.
[2023-04-15 11:45] VITALS: BP 138/68; PULSE 69; RESP 18; TEMP 35.9; O2SAT 99; BMI 28.0
[2023-04-15] MEDS: LACTATED RINGERS 1,000 ML 150 ML IV CONT (12:10)
--- NOTE | 2023-04-15 12:19 | WPDANESEPPF ---
Anes - Initial Pre Proc Eval Procedure: Operation Date: 04/15/23 13:00 Proposed Procedures p Flexible Sigmoidoscopy - Zia Mai MD Date/Time: 04/15/23 12:19 Surgeon: Zia Mai MD Pre Op Diagnosis: Hemorrhage of anus and rectum Patient Data Age: 78 Gender: M Height: 1.75 m Weight: 86.3 kg Last Vital Signs Temp 96.7 F L 04/15/23 11:45 Pulse 69 04/15/23 11:45 Resp 18 04/15/23 11:45 BP 138/68 04/15/23 11:45 Pulse Ox 99 04/15/23 11:45 O2 Del Method Room Air 04/15/23 11:45 Allergies Allergy/AdvReac Type Severity Reaction Status Date / Time tamsulosin [From Flomax] Allergy Hives Verified 04/15/23 11:51 Home Medications Medication Instructions Recorded Confirmed Type multivitamin (Daily Multiple 1 tablet PO DAILY 11/05/19 04/15/23 History tablet) omeprazole 20 mg tablet,delayed 20 mg PO DAILY 11/05/19 04/15/23 History release diphenoxylate-atropine 2.5 1 tablet PO QID PRN IBS 07/04/21 04/15/23 History mg-0.025 mg tablet Bifidobacterium infantis 1.5 4 mg PO DAILY 07/27/21 04/15/23 History billion cell capsule levothyroxine 75 mcg tablet 75 mcg PO DAILY 07/27/21 04/15/23 History venlafaxine 37.5 mg 37.5 mg PO DAILY 01/03/23 04/15/23 History capsule,extended release 24 hr tadalafil 20 mg tablet 20 mg PO DAILY PRN erectile 04/02/23 04/15/23 History dysfruntion Patient hx anesthesia problems: none Family hx anesthesia problems: none Results Review: All pre-operative results and documents have been reviewed as part of the pre-operative evaluation. [facility] Past Medical History Medical History Arthritis Gastroesophageal reflux disease Hypothyroid Prostate cancer Ureteral stone Surgical History Surgical History History of appendectomy History of prostatectomy Social History Social History Smoking status: Never smoker Alcohol intake: never Substance use: never Substance use type: does not use Living arrangements: with family Gender identity (if verbalized by the patient): Male Spiritual care concerns: No Anes - Eval Final PreProcedure Day of Procedure 04/15/23 12:19 Patient weight: normal Heart: regular rate and rhythm Lungs: clear to auscultation Airway: Mallampati scale class II Neurological: alert and oriented Last oral intake: >/= 8 hours ASA classification: III Emergent: no Anesthetic plan: proceed Anesthesia type and monitoring: general GIVS and standard monitoring Results Review: All pre-operative results and documents have been reviewed as part of the pre-operative evaluation. Informed Consent: The patient's anesthetic plan and its attendant risks and benefits were discussed with the patient/family/POA. Questions were solicited and answers provided to the satisfaction of the patient/family/POA.
[2023-04-15 12:56] VITALS: BP 133/63; PULSE 68; RESP 20; O2SAT 98
[2023-04-15 13:06] VITALS: BP 128/63; PULSE 62; RESP 19; O2SAT 99
[2023-04-15 13:16] VITALS: BP 152/79; PULSE 71; RESP 17; O2SAT 99
== END 2023-04-15 13:33 | disposition home or self-care (01) ==
PROVIDERS: PCP Student in an Organized Health Care Education/Training Program; Visit Provider Internal Medicine Gastroenterology
PROC: 0DJD8ZZ Inspection of Lower Intestinal Tract, Via Natural or Artificial Opening Endoscopic (ICD-10-PCS; CPT 45330; principal; 2023-04-15 13:00)
DX: K62.5 Hemorrhage of anus and rectum (principal); K62.7 Radiation proctitis; K21.9 Gastro-esophageal reflux disease without esophagitis; E03.9 Hypothyroidism, unspecified; Z90.79 Acquired absence of other genital organ(s); Z85.46 Personal history of malignant neoplasm of prostate
CPT/HCPCS: 45346; J2704; J7120

== ENCOUNTER 2023-05-09 00:27 | Day surgery (SDC) | payer MEDICARE, SELFPAY ==
[2023-05-07 09:55] VITALS: BMI 10.5
--- NOTE | 2023-05-07 10:08 | SUR.PREOP ---
Patient called regarding upcoming procedure. Reviewed preop instructions, appointment times, and procedure prep.
--- NOTE | 2023-05-08 14:54 | PM.HPGS ---
History of Present Illness History of Present Illness Consent: Risks, benefits, and alternatives have been discussed and questions answered. Patient agrees to proceed with procedure. Chief complaint: Radiation proctitis,Other hemorrhoids Narrative: Gagan Chin is a 78 year old male who has had persistent rectal bleeding. Last month he had treatment for radiation proctitis with [employer] plasma technology integration specialist. He also was found have large internal hemorrhoids at that time. He has had persistent bleeding, daily, at times passing clots. Review of Systems Review of Systems: All systems reviewed & are unremarkable except as noted in HPI and below PMFSH Past Medical History Medical History Arthritis Depression Gastroesophageal reflux disease Hypothyroid Prostate cancer Ureteral stone Surgical History Surgical History History of appendectomy History of prostatectomy Family History Family History Other Heart disease Hypertension Lung cancer Malignant neoplasm of prostate Social History Social History Smoking status: Never smoker Alcohol intake: never Substance use: never Substance use type: does not use Living arrangements: with family Gender identity (if verbalized by the patient): Male Spiritual care concerns: No Meds Home Medications and Allergies Home Medications Medication Instructions Recorded Confirmed Type multivitamin (Daily Multiple 1 tablet PO DAILY 11/05/19 05/09/23 History tablet) omeprazole 20 mg tablet,delayed 20 mg PO DAILY 11/05/19 05/09/23 History release Bifidobacterium infantis 1.5 4 mg PO DAILY 07/27/21 05/09/23 History billion cell capsule levothyroxine 75 mcg tablet 75 mcg PO DAILY 07/27/21 05/09/23 History venlafaxine 37.5 mg 37.5 mg PO DAILY 01/03/23 05/09/23 History capsule,extended release 24 hr tadalafil 20 mg tablet 20 mg PO DAILY PRN erectile 04/02/23 05/09/23 History dysfruntion mesalamine 1,000 mg rectal 1 g RECTAL QHS 04/26/23 05/09/23 History suppository Allergies Allergy/AdvReac Type Severity Reaction Status Date / Time tamsulosin [From Flomax] Allergy Hives Verified 05/09/23 06:21 Exam Resp: Auscultation: clear to auscultation bilaterally Cardio: Rate: regular rate Rhythm: regular rhythm GI: GI Palp: Yes Soft to palpation and No Tenderness to palpation present (GI) Assessment and Plan Assessment and plan (1) Rectal bleeding: Code(s): K62.5 - Hemorrhage of anus and rectum Status: Acute Assessment and Plan: sigmoidoscopy with possible biopsy or polypectomy or cautery or injection of substances.
[2023-05-09 06:23] VITALS: BP 132/65; PULSE 71; RESP 18; TEMP 36.5; O2SAT 99; BMI 30.7
[2023-05-09] MEDS: LACTATED RINGERS 1,000 ML 150 ML IV CONT (06:26)
--- NOTE | 2023-05-09 06:47 | WPDANESEPPF ---
Anes - Initial Pre Proc Eval Procedure: Operation Date: 05/09/23 07:15 Proposed Procedures p Flexible Sigmoidoscopy - Zia Mai MD Date/Time: 05/09/23 06:47 Surgeon: Zia Mai MD Pre Op Diagnosis: Radiation proctitis,Other hemorrhoids Patient Data Age: 78 Gender: M Height: 1.68 m Weight: 86.3 kg Last Vital Signs Temp 97.7 F 05/09/23 06:23 Pulse 71 05/09/23 06:23 Resp 18 05/09/23 06:23 BP 132/65 05/09/23 06:23 Pulse Ox 99 05/09/23 06:23 O2 Del Method Room Air 05/09/23 06:23 Allergies Allergy/AdvReac Type Severity Reaction Status Date / Time tamsulosin [From Flomax] Allergy Hives Verified 05/09/23 06:21 Home Medications Medication Instructions Recorded Confirmed Type multivitamin (Daily Multiple 1 tablet PO DAILY 11/05/19 05/09/23 History tablet) omeprazole 20 mg tablet,delayed 20 mg PO DAILY 11/05/19 05/09/23 History release Bifidobacterium infantis 1.5 4 mg PO DAILY 07/27/21 05/09/23 History billion cell capsule levothyroxine 75 mcg tablet 75 mcg PO DAILY 07/27/21 05/09/23 History venlafaxine 37.5 mg 37.5 mg PO DAILY 01/03/23 05/09/23 History capsule,extended release 24 hr tadalafil 20 mg tablet 20 mg PO DAILY PRN erectile 04/02/23 05/09/23 History dysfruntion mesalamine 1,000 mg rectal 1 g RECTAL QHS 04/26/23 05/09/23 History suppository Patient hx anesthesia problems: none Family hx anesthesia problems: none Results Review: All pre-operative results and documents have been reviewed as part of the pre-operative evaluation. [facility] Past Medical History Medical History Arthritis Depression Gastroesophageal reflux disease Hypothyroid Prostate cancer Ureteral stone Surgical History Surgical History History of appendectomy History of prostatectomy Family History Family History Other Heart disease Hypertension Lung cancer Malignant neoplasm of prostate Social History Social History Smoking status: Never smoker Alcohol intake: never Substance use: never Substance use type: does not use Living arrangements: with family Gender identity (if verbalized by the patient): Male Spiritual care concerns: No Anes - Eval Final PreProcedure Day of Procedure 05/09/23 06:47 Patient weight: normal Heart: regular rate and rhythm Lungs: clear to auscultation Airway: Mallampati scale class II Neurological: alert and oriented Last oral intake: >/= 8 hours ASA classification: III Emergent: no Anesthetic plan: proceed Anesthesia type and monitoring: general GIVS and standard monitoring Results Review: All pre-operative results and documents have been reviewed as part of the pre-operative evaluation. Informed Consent: The patient's anesthetic plan and its attendant risks and benefits were discussed with the patient/family/POA. Questions were solicited and answers provided to the satisfaction of the patient/family/POA.
[2023-05-09 07:29] VITALS: BP 96/62; PULSE 66; RESP 25; O2SAT 96
[2023-05-09 07:39] VITALS: BP 112/58; PULSE 64; RESP 16; O2SAT 100
[2023-05-09 07:49] VITALS: BP 123/69; PULSE 61; RESP 16; O2SAT 100
== END 2023-05-09 08:26 | disposition home or self-care (01) ==
PROVIDERS: PCP Family Medicine; Visit Provider Internal Medicine Gastroenterology
PROC: 0DJD8ZZ Inspection of Lower Intestinal Tract, Via Natural or Artificial Opening Endoscopic (ICD-10-PCS; CPT 45330; principal; 2023-05-09 07:15)
DX: K62.7 Radiation proctitis (principal); K64.8 Other hemorrhoids; Z85.46 Personal history of malignant neoplasm of prostate; E03.9 Hypothyroidism, unspecified; F32.A Depression, unspecified; Y84.2 Radiological procedure and radiotherapy as the cause of abnormal reaction of the patient, or of later complication, without mention of misadventure at the time of the procedure
CPT/HCPCS: 45334; J2704; J7120